=== PATIENT | female | born 1990 | race Caucasian/White ===

== ENCOUNTER → 2018-05-01 | Outpatient (REF) | payer OTHER ==
[~2018-05-01] MED LIST: LEVO1TAB31 PO
[2018-05-01 13:19] LABS: PLATELET COUNT, AUTOMATED 499 K/uL (150-450)
== END ==
PROVIDERS: ATTEND Family Medicine
DX: R11.10 Vomiting, unspecified (principal); R10.9 Unspecified abdominal pain
CPT/HCPCS: 82040; 82247; 82310; 82374; 82435; 82565; 82947; 84075; 84132; 84155; 84295; 84450; 84460; 84520; 85025; 86140

== ENCOUNTER → 2018-05-01 | Outpatient (CLI) | payer OTHER ==
[~2018-05-01] MED LIST changes: +IOPAMIDOL 76% 75 ML INFUS BTL 75 ML ONE; +LIDOCAINE/SOD BICARB 8.4% SYR ID ONE
--- NOTE | 2018-05-01 15:09 | RADIOLOGY IMAGING REPORT ---
FACILITY: [facility] [place] PATIENT NAME: Aline Huggins : 1990 MR: [id number] V: [id number] EXAM DATE: ORDERING PHYSICIAN: YAS AGUILAR TECHNOLOGIST: Location: [facility] Patient: Aline Huggins : 1990 Visit/Account:[id number] Date of Sevice: 05/01/2018 EXAMINATION: CT abdomen with IV contrast CT pelvis with IV contrast HISTORY: Abdominal pain. TECHNIQUE: Spiral scan was through the abdomen and pelvis during injection of nonionic iodinated in travenous contrast. Sagittal and coronal reformatted images are also submitted. One of the following dose optimization techniques was utilized in the performance of this exam: Autom ated exposure control; adjustment of the mA and/or kV according to the patient's size; or use of an i terative reconstruction technique. Specific details can be referenced in the facility's radiology C T exam operational policy. CONTRAST: 75 mL of IV [id number]-[id number] COMPARISON: None available. FINDINGS: Lower chest: Negative. Liver / biliary: Negative. Pancreas: Negative. Spleen: Negative. Adrenal glands: Negative. Kidneys: Negative. Pelvic structures: Negative. Bowel: Normal appendix. Otherwise negative. Peritoneum / retroperitoneum / mesenteries: Mild free fluid in the pelvis. No free air. Vessels: Negative. Lymph nodes: Negative. Musculoskeletal / Body wall: Facet hypertrophy at L5-S1. IMPRESSION: 1. Mild free fluid in the pelvis of uncertain etiology, possibly physiologic. 2. Otherwise no acute abnormality in the abdomen or pelvis. 3. Facet hypertrophy at L5-S1. Results were called to YAS AGUILAR at 05/01/2018 3:05 PM. Report Dictated By: Wayne Aguilera MD at 05/01/2018 2:51 PM Report E-Signed By: Wayne Aguilera MD at 05/01/2018 3:05 PM WSN:[id number]
== END ==
LOC: CT 13:21
PROVIDERS: ATTEND Family Medicine
DX: M89.38 Hypertrophy of bone, other site (principal); R10.9 Unspecified abdominal pain
CPT/HCPCS: 74177; Q9967